=== PATIENT | male | born 1930 | race Caucasian/White ===

== ENCOUNTER → 2017-05-31 | Outpatient (CLI) | payer MEDICARE, BC ==
[~2017-05-31] MED LIST: Aspir 8181 MG PO; Aspirin EC81 MG PO; CEPH500 PO; CIPR500 PO; Cipro500 MG PO; FINA5 PO; LEVEMIR FL100 UNIT/1 SQ; METO25 PO; METO25ER PO; OMEPRAZOLE; OMEPRAZOLE MAGN20 MG PO; Prilosec Otc20 MG PO; QUET25 PO; SULTRISS PO; TAMS.4ER PO; Vesicare10 MG PO
== END ==
LOC: PLD 10:26 → LAB SHORT 10:26
DX: D48.5 Neoplasm of uncertain behavior of skin (principal)
CPT/HCPCS: 88305

== ENCOUNTER → 2017-06-08 | Outpatient (CLI) | payer MEDICARE, BC | END | disposition home or self-care (01) | LOC: LAB SHORT 08:26 → PLD 08:26 | DX: L57.8 Other skin changes due to chronic exposure to nonionizing radiation (principal) | CPT/HCPCS: 88305 ==

== ENCOUNTER → 2020-07-22 | Outpatient (CLI) | payer MEDICARE, BC | END | disposition home or self-care (01) | LOC: LAB SHORT 10:53 → LAB 10:53 | DX: C44.229 Squamous cell carcinoma of skin of left ear and external auricular canal (principal) | CPT/HCPCS: 88305 ==

== ENCOUNTER → 2020-08-26 | Outpatient (CLI) | payer MEDICARE, BC | END | disposition home or self-care (01) | LOC: LAB SHORT 07:40 → LAB 07:40 | DX: L81.4 Other melanin hyperpigmentation (principal); L98.499 Non-pressure chronic ulcer of skin of other sites with unspecified severity | CPT/HCPCS: 88305 ==